=== PATIENT | male | born 1955 | race Caucasian/White ===

== ENCOUNTER 2018-02-25 09:30 | Inpatient (IN) | payer OTHER ==
[2018-02-20 16:45] LABS: BASOPHILS % (AUTO) 0.5 % (0-1); EOSINOPHILS # (AUTO) 0.1 X10'3 (0-0.9); EOSINOPHILS % (AUTO) 1.6 % (0-6); LYMPHOCYTES # (AUTO) 1.7 X10'3 (1.1-4.8); LYMPHOCYTES % (AUTO) 24.9 % (21-51); MEAN CORPUSCULAR HEMOGLOBIN 30.3 PG (27.0-31.0); MEAN CORPUSCULAR VOLUME 88.9 FL (78-98); MEAN PLATELET VOLUME 7.1 FL (7.4-10.4); MONOCYTES # (AUTO) 0.6 X10'3 (0-0.9); MONOCYTES % (AUTO) 8.1 % (2-12); NEUTROPHILS # (AUTO) 4.4 X10'3 (1.8-7.7); NEUTROPHILS % (AUTO) 64.9 % (42-75); PRE OP HEMATOCRIT 45.7 % (42.0-52.0); PRE OP HEMOGLOBIN 15.6 g/dL (14.0-17.9); PRE OP PLATELET COUNT 276 X10'3 (140-440); RED BLOOD COUNT 5.14 X10'6 (4.70-6.10); RED CELL DISTRIBUTION WIDTH 13.4 % (11.5-14.5)
[2018-02-20 16:50] LABS: CLARITY,URINE CLEAR (Clear); COLOR,URINE YELLOW (Yellow); GLUCOSE, URINE NEGATIVE (Neg); KETONES,URINE NEGATIVE (Neg); LEUKOCYTE ESTERASE ,URINE NEGATIVE (Neg); NITRITES, URINE NEGATIVE (Neg); OCCULT BLOOD,URINE NEGATIVE (Neg); PH,URINE 5.5 (4.8-8.0); PROTEIN,URINE NEGATIVE (Neg); UROBILINOGEN,URINE 0.2 E.U/dL (0.2-1.0)
[2018-02-20 16:55] LABS: UA COLLECTION TYPE CLN CATCH MIDSTREAM
[2018-02-20 17:00] LABS: ALBUMIN/GLOBULIN RATIO 1.1 (1.1-1.5); ALKALINE PHOSPHATASE 41 IU/L (46-116); BLOOD UREA NITROGEN 16 MG/DL (7-18); BUN/CREATININE RATIO 17.6 (5.4-32.0); CALCIUM 9.1 MG/DL (8.5-10.1); CHLORIDE 102 MMOL/L (99-107); CREATININE 0.91 MG/DL (0.60-1.10); PRE OP ALT 31 U/L (30-65); PRE OP ANION GAP 12 (8-16); PRE OP AST 23 U/L (10-37); PRE OP BILIRUB, TOTAL 0.5 MG/DL (0.0-1.0); PRE OP GLUCOSE 79 MG/DL (70-104); PRE OP POTASSIUM 4.1 MMOL/L (3.4-5.1); PRE OP SODIUM 139 MMOL/L (135-145); TOTAL CARBON DIOXIDE 25.2 MMOL/L (24-32); TOTAL PROTEIN 7.7 G/DL (6.4-8.2); eGFR 84 ML/MIN
[~2018-02-25] VITALS: Ht 182.9 cm; Wt 75.1 kg
[~2018-02-25 09:30] MED LIST: NO HOME MEDS
[2018-02-27] VITALS (21 sets, daily range): BP systolic 94–136; BP diastolic 59–94
[2018-02-27] MEDS ORDERED: ringers solution, lacted 1,000 ML IV SCH ×2 (05:00→11:41)
[2018-02-27] MEDS ORDERED: famotidine 20mg tablet PO ONE (05:30)
[2018-02-27] MEDS ORDERED: Cefazolin 2GM/50ML dext iso,osmotic IVPB IV ONE (05:30)
[2018-02-27] MEDS ORDERED: gabapentin 300mg capsule PO ONE (05:30)
[2018-02-27] MEDS ORDERED: acetaminophen 325mg tablet PO ONE (05:30)
[2018-02-27] MEDS ORDERED: celeCOXIB 100mg capsule PO ONE (05:30)
[2018-02-27] MEDS ORDERED: vancomycin inj 1,500 MG in normal saline 300ml IV soln IV ONE (05:30)
[2018-02-27] MEDS ORDERED: oxyCODONE SR 10mg (sust. release) tab -2 tabs (20mg) PO ONE (05:30)
[2018-02-27] MEDS ORDERED: metoclopramide 5 mg/ml inj IV ONE (05:30)
[2018-02-27] MEDS ORDERED: tranexamic acid inj. 1,000 MG in normal saline 100ml IV soln 90 ML IV ONE (05:30)
[2018-02-27] MEDS ORDERED: acetaminophen 325mg tablet PO PRN (07:15)
[2018-02-27] MEDS ORDERED: ondansetron/PF 4mg/2ml inj IV PRN ×3 (07:15→11:50)
[2018-02-27] MEDS ORDERED: magnesium hydroxide 30ml (MOM) UD suspension PO PRN (07:15)
[2018-02-27] MEDS ORDERED: HYDROmorphone inj. 0.5 MG/0.5 ML DISP.SYRIN IV PRN ×2 (07:15)
[2018-02-27] MEDS ORDERED: diphenhydrAMINE 25mg capsule PO PRN ×2 (07:15)
[2018-02-27] MEDS ORDERED: bisacodyl 10mg suppository rectal RC PRN (07:15)
[2018-02-27] MEDS: gabapentin 300mg capsule PO SCH ×3 (08:00→20:24)
[2018-02-27] MEDS: ceFAZolin 1GM/D5W- ADD-VANTAGE 50 ML IV SCH ×2 (08:00→16:06)
[2018-02-27] MEDS ORDERED: vancomycin/NS 1 GM ADD-VANTAGE 250 ML IV SCH ×2 (08:00→21:00)
[2018-02-27] MEDS: ascorbic acid 500mg tablet PO SCH ×2 (08:00→20:24)
[2018-02-27] MEDS: multivitamins, therapeutics tablet PO SCH (08:00)
[2018-02-27] MEDS: aspirin 325mg tablet PO SCH (08:30)
[2018-02-27] MEDS ORDERED: LIDOcaine 1% (10mg/ml) 2ml vial ONE (08:58)
[2018-02-27] MEDS ORDERED: vancomycin 1,000mg inj ONE (09:06)
[2018-02-27] MEDS ORDERED: ketorolac trometh. 30mg/ml inj. ONE (09:06)
[2018-02-27] MEDS ORDERED: ROPIVAcaine 0.5% (5mg/ml) 30ml vial ONE (09:06)
[2018-02-27] MEDS ORDERED: cloNIDine hcl/PF 100mcg/ml inj ONE (09:06)
[2018-02-27] MEDS ORDERED: epiNEPHrine 1 mg/ml inj ONE (09:06)
[2018-02-27] MEDS ORDERED: ROPIVAcaine inj 250 MG, epiNEPHrine inj 0.5 MG, CloNIDine/PF inj 80 MCG in normal salin... SQ ONE (10:20)
[2018-02-27] MEDS ORDERED: tetracaine 1% (10mg/ml) pres. free inj. ONE (10:35)
[2018-02-27] MEDS ORDERED: fentaNYL/PF 50MCG/1 ML 2ML syringe ONE ×2 (10:37→10:54)
[2018-02-27] MEDS ORDERED: morphine sulfate /PF 0.5 MG/ML 10mL ampul ONE (10:37)
[2018-02-27] MEDS ORDERED: MIDAZolam 5mg/5ml vial ONE (10:38)
[2018-02-27] MEDS ORDERED: propofol inj 20 ML IV ONE (10:56)
[2018-02-27] MEDS ORDERED: LIDOcaine 1%/PF 5ML 10 MG/ML VIAL ONE (10:56)
[2018-02-27] MEDS ORDERED: morphine 4 MG/ML inj SYRINge IV PRN ×2 (11:45)
[2018-02-27] MEDS ORDERED: HYDROmorphone 1 mg/ml syringe IV PRN ×2 (11:45)
[2018-02-27] MEDS ORDERED: diphenhydrAMINE 50 mg/ml inj IV PRN (11:50)
[2018-02-27] MEDS ORDERED: naloxone 2mg/2ml inj 1.5 MG in normal saline 500ml IV soln 500 ML IV PRN (11:50)
[2018-02-27] MEDS ORDERED: diphenhydrAMINE 50 mg/ml inj ONE (12:03)
[2018-02-27] MEDS: potassium cl 20mEq in 1/2 NS 1,000 ML IV SCH ×2 (16:06→16:08)
[2018-02-27] MEDS: sennosides 8.6mg tablet PO SCH (20:24)
[2018-02-28] MEDS: potassium cl 20mEq in 1/2 NS 1,000 ML IV SCH ×4 (01:51→23:12)
[2018-02-28 01:55] VITALS: BP 96/62
[2018-02-28] MEDS: HYDROcodone/acetaminophen 10/325mg tab PO PRN ×4 (05:33→20:02)
[2018-02-28 06:00] VITALS: BP 104/68
[2018-02-28 07:36] LABS: BASOPHILS % (AUTO) 0.1 % (0-1); EOSINOPHILS # (AUTO) 0.1 X10'3 (0-0.9); EOSINOPHILS % (AUTO) 1.7 % (0-6); HEMATOCRIT 40.9 % (42.0-52.0); HEMOGLOBIN 13.6 g/dl (14.0-17.9); LYMPHOCYTES # (AUTO) 0.9 X10'3 (1.1-4.8); LYMPHOCYTES % (AUTO) 11.8 % (21-51); MEAN CORPUSCULAR HGB CONC 33.3 % (33.0-36.5); MEAN CORPUSCULAR VOLUME 89.8 FL (78-98); MEAN PLATELET VOLUME 7.6 FL (7.4-10.4); MONOCYTES # (AUTO) 0.7 X10'3 (0-0.9); MONOCYTES % (AUTO) 9.6 % (2-12); NEUTROPHILS # (AUTO) 5.9 X10'3 (1.8-7.7); NEUTROPHILS % (AUTO) 76.8 % (42-75); PLATELET COUNT 261 X10'3 (140-440); RED BLOOD COUNT 4.55 X10'6 (4.70-6.10); RED CELL DISTRIBUTION WIDTH 12.7 % (11.5-14.5); WHITE BLOOD COUNT 7.6 X10'3 (4.5-11.0)
[2018-02-28] MEDS: aspirin 325mg tablet PO SCH (07:47)
[2018-02-28] MEDS: multivitamins, therapeutics tablet PO SCH (07:47)
[2018-02-28] MEDS: ascorbic acid 500mg tablet PO SCH ×2 (07:47→20:02)
[2018-02-28] MEDS: gabapentin 300mg capsule PO SCH ×3 (07:47→20:02)
[2018-02-28 07:48] LABS: ANION GAP 3 (8-16); CHLORIDE 104 MMOL/L (99-107); POTASSIUM 4.2 MMOL/L (3.5-5.1); SODIUM 136 MMOL/L (135-145); TOTAL CARBON DIOXIDE 28.7 MMOL/L (24-32)
[2018-02-28 10:00] VITALS: BP 105/58
[2018-02-28 14:00] VITALS: BP 117/75
[2018-02-28 18:00] VITALS: BP 104/70
[2018-02-28] MEDS: sennosides 8.6mg tablet PO SCH (20:01)
[2018-02-28 22:00] VITALS: BP 117/71
[2018-03-01 05:00] VITALS: BP 124/78
[2018-03-01] MEDS: HYDROcodone/acetaminophen 10/325mg tab PO PRN ×3 (05:12→20:34)
[2018-03-01 05:55] LABS: BASOPHILS % (AUTO) 0.1 % (0-1); EOSINOPHILS % (AUTO) 0.4 % (0-6); HEMATOCRIT 39.3 % (42.0-52.0); HEMOGLOBIN 13.4 g/dl (14.0-17.9); LYMPHOCYTES # (AUTO) 1.1 X10'3 (1.1-4.8); LYMPHOCYTES % (AUTO) 11.1 % (21-51); MEAN CORPUSCULAR HEMOGLOBIN 30.4 PG (27.0-31.0); MEAN CORPUSCULAR VOLUME 89.4 FL (78-98); MEAN PLATELET VOLUME 7.8 FL (7.4-10.4); MONOCYTES # (AUTO) 1.1 X10'3 (0-0.9); MONOCYTES % (AUTO) 11.1 % (2-12); NEUTROPHILS # (AUTO) 7.8 X10'3 (1.8-7.7); NEUTROPHILS % (AUTO) 77.3 % (42-75); PLATELET COUNT 232 X10'3 (140-440); RED CELL DISTRIBUTION WIDTH 12.7 % (11.5-14.5)
[2018-03-01] MEDS: gabapentin 300mg capsule PO SCH ×3 (07:31→20:34)
[2018-03-01] MEDS: multivitamins, therapeutics tablet PO SCH (07:31)
[2018-03-01] MEDS: ascorbic acid 500mg tablet PO SCH ×2 (07:31→20:34)
[2018-03-01] MEDS: aspirin 325mg tablet PO SCH (08:43)
[2018-03-01 10:00] VITALS: BP 117/77
[2018-03-01] MEDS ORDERED: ASPI-1 PO (12:49)
[2018-03-01 18:00] VITALS: BP 104/71
[2018-03-01] MEDS: sennosides 8.6mg tablet PO SCH (20:35)
[2018-03-01 22:00] VITALS: BP 122/68
[2018-03-02] MEDS: HYDROcodone/acetaminophen 10/325mg tab PO PRN ×2 (05:25→09:58)
[2018-03-02 05:47] LABS: BASOPHILS % (AUTO) 0.3 % (0-1); EOSINOPHILS # (AUTO) 0.1 X10'3 (0-0.9); HEMOGLOBIN 12.9 g/dl (14.0-17.9); LYMPHOCYTES # (AUTO) 0.7 X10'3 (1.1-4.8); LYMPHOCYTES % (AUTO) 8.1 % (21-51); MEAN CORPUSCULAR HEMOGLOBIN 30.6 PG (27.0-31.0); MEAN CORPUSCULAR HGB CONC 33.8 % (33.0-36.5); MEAN CORPUSCULAR VOLUME 90.4 FL (78-98); MEAN PLATELET VOLUME 7.1 FL (7.4-10.4); MONOCYTES % (AUTO) 11.1 % (2-12); NEUTROPHILS # (AUTO) 6.9 X10'3 (1.8-7.7); NEUTROPHILS % (AUTO) 79.5 % (42-75); PLATELET COUNT 241 X10'3 (140-440); RED BLOOD COUNT 4.21 X10'6 (4.70-6.10); RED CELL DISTRIBUTION WIDTH 12.6 % (11.5-14.5); WHITE BLOOD COUNT 8.7 X10'3 (4.5-11.0)
[2018-03-02 06:00] VITALS: BP 125/69
[2018-03-02] MEDS: multivitamins, therapeutics tablet PO SCH (08:24)
[2018-03-02] MEDS: gabapentin 300mg capsule PO SCH (08:24)
[2018-03-02] MEDS: aspirin 325mg tablet PO SCH (08:24)
[2018-03-02] MEDS: ascorbic acid 500mg tablet PO SCH (08:24)
[2018-03-02 10:00] VITALS: BP 112/79
== END 2018-03-02 10:22 | disposition home or self-care (01) | DRG 470 ==
LOC: EDSTATUS 09:30 → PAS IN 02-27 08:19 → EDSTATUS 02-27 10:45 → ORTHO 4S 02-27 13:58
PROVIDERS: ADMIT Orthopaedic Surgery; ATTEND Orthopaedic Surgery
PROC: 0SRB06Z Replacement of Left Hip Joint with Oxidized Zirconium on Polyethylene Synthetic Substitute, Open Approach (ICD-10-PCS; principal; 2018-02-27 10:37)
DX: M16.12 Unilateral primary osteoarthritis, left hip (principal); D62 Acute posthemorrhagic anemia; M25.752 Osteophyte, left hip; Z79.82 Long term (current) use of aspirin; Z79.899 Other long term (current) drug therapy; Z88.8 Allergy status to other drugs, medicaments and biological substances
CPT/HCPCS: 36415; 71045; 72170; 80051; 80053; 81003; 85025; 86885; 86900; 86901; 87070; 93005; 97110; 97116; 97162; 97530; A4615; A7000; C1758; C1776; J0171; J0690; J0735; J1200; J1885; J2001; J2250; J2274; J2704; J2765; J2795; J3010; J3370; J3490; J7030; J7120